=== PATIENT | male | born 1955 | race Caucasian/White ===

== ENCOUNTER 2018-01-19 14:33 | Inpatient (IN) | payer OTHER ==
[~2018-01-19] VITALS: Ht 167.6 cm; Wt 83.0 kg
[~2018-01-19 14:33] MED LIST: ADVIL200 MG PO; AMLODIPINE BESY10 MG PO; APRESOLINE100 MG PO; CLEOCIN300 MG PO; LASIX20 MG/2 ML PO; LISINOPRIL10 MG PO; PANTOPRAZOLE SO40 MG PO; Rocephin IV
[2018-01-19 15:23] LABS: HEMATOCRIT 42.8 % (38.0-50.0); MCH 26.4 PG (29.0-34.0); MCHC 32.7 G/DL (30.0-36.0); MCV 80.8 FL (86-99); PLATELET COUNT 203 K/uL (156-360); RBC DIS.WIDTH-CV 15.9 % (11.8-14.6); RBC DIS.WIDTH-SD 46.4 % (39-53); WHITE BLOOD COUNT 5.7 K/uL (4.1-10.2)
[2018-01-19 15:34] LABS: CHLORIDE 106 mEq/L (99-109); SODIUM 139 mEq/L (136-147)
[2018-01-19 15:35] LABS: GLUCOSE 109 mg/dL (70-99)
[2018-01-19 15:39] LABS: GFR ESTIMATE (CALCULATED) > 59 mL/min/ (58.99-99999)
[2018-01-19 15:40] LABS: UREA NITROGEN (BUN) 22 mg/dL (9-23)
[2018-01-19] MEDS ORDERED: APRESOLINE100 MG PO (17:25)
[2018-01-19] MEDS ORDERED: ERGOCALCIF50000 UNIT PO (17:25)
[2018-01-19] MEDS ORDERED: VITAMIN B122500 MCG PO (17:26)
[2018-01-19] MEDS ORDERED: SIMVASTATIN20 MG PO (17:26)
[2018-01-19 20:36] LABS: SERUM ETHYL ALCOHOL < 10 mg/dL
[2018-01-19 20:45] LABS: TROP-I INTERPRETATION NEGATIVE; TROPONIN-I < 0.01 ng/mL (0.0-0.30)
[2018-01-19 21:45] LABS: HDL CHOLESTEROL 43 MG/DL (Desirable>=40); LDL CHOLESTEROL 98 mg/dL (Desirable<100); NON-HDL CHOLESTEROL 126 mg/dL (Desirable<160); TOTAL CHOLESTEROL 169 mg/dL (Desirable<200); TRIGLYCERIDES 141 MG/DL (Normal: <150)
[2018-01-19 22:23] VITALS: BP 183/113
[2018-01-20 00:27] VITALS: BP 136/78
[2018-01-20 02:00] LABS: TROP-I INTERPRETATION NEGATIVE; TROPONIN-I < 0.01 ng/mL (0.0-0.30)
[2018-01-20 03:22] LABS: HEMATOCRIT 41.5 % (38.0-50.0); HEMOGLOBIN 13.4 G/DL (12.5-16.6); MCV 80.9 FL (86-99)
[2018-01-20 04:17] VITALS: BP 119/82
[2018-01-20 06:32] LABS: HEMATOCRIT 42.1 % (38.0-50.0); HEMOGLOBIN 13.5 G/DL (12.5-16.6); MCH 25.9 PG (29.0-34.0); MCHC 32.1 G/DL (30.0-36.0); MCV 80.7 FL (86-99); PLATELET COUNT 221 K/uL (156-360); RBC DIS.WIDTH-CV 15.9 % (11.8-14.6); RBC DIS.WIDTH-SD 46.7 % (39-53); RED BLOOD COUNT 5.22 M/uL (4.00-5.50); WHITE BLOOD COUNT 5.9 K/uL (4.1-10.2)
[2018-01-20 07:02] LABS: TROP-I INTERPRETATION NEGATIVE; TROPONIN-I < 0.01 ng/mL (0.0-0.30)
[2018-01-20 07:39] VITALS: BP 115/81
[2018-01-20 10:19] LABS: HEMOGLOBIN A1c (GLYCOHEMOGLOB) 5.7 % (Below 5.7)
[2018-01-20 11:46] VITALS: BP 125/87
[2018-01-20 15:28] VITALS: BP 127/97
[2018-01-20 17:22] LABS: HEMATOCRIT 43.3 % (38.0-50.0); HEMOGLOBIN 13.9 G/DL (12.5-16.6); MCV 81.9 FL (86-99)
[2018-01-20 19:29] VITALS: BP 132/65
[2018-01-20 22:09] LABS: HEMATOCRIT 41.7 % (38.0-50.0); HEMOGLOBIN 13.5 G/DL (12.5-16.6); MCV 81.9 FL (86-99)
[2018-01-21 00:11] VITALS: BP 116/68
[2018-01-21 04:12] VITALS: BP 112/77
[2018-01-21 05:37] LABS: HEMATOCRIT 43.3 % (38.0-50.0); HEMOGLOBIN 13.5 G/DL (12.5-16.6); MCH 25.6 PG (29.0-34.0); MCHC 31.2 G/DL (30.0-36.0); MCV 82.2 FL (86-99); PLATELET COUNT 217 K/uL (156-360); RBC DIS.WIDTH-CV 15.9 % (11.8-14.6); RBC DIS.WIDTH-SD 47.4 % (39-53); RED BLOOD COUNT 5.27 M/uL (4.00-5.50); WHITE BLOOD COUNT 5.1 K/uL (4.1-10.2)
[2018-01-21 05:44] LABS: PTT 27.5 SEC (25-37)
[2018-01-21 06:12] LABS: ALBUMIN 3.5 G/DL (3.2-4.8); CHLORIDE 102 MEQ/L (99-109); CREATININE 1.3 MG/DL (0.6-1.3); GFR ESTIMATE (CALCULATED) > 59 mL/min/ (58.99-99999); GLUCOSE 101 mg/dL (70-99); PHOSPHORUS 3.6 mg/dL (2.5-4.9); POTASSIUM 4.3 MEQ/L (3.7-5.4); SODIUM 138 MEQ/L (136-147); UREA NITROGEN (BUN) 20 mg/dL (9-23)
[2018-01-21 07:06] VITALS: BP 109/76
[2018-01-21 13:30] VITALS: BP 120/72
[2018-01-21 14:10] LABS: HEMATOCRIT 45.9 % (38.0-50.0); HEMOGLOBIN 14.6 G/DL (12.5-16.6); MCV 82.1 FL (86-99)
[2018-01-21 19:42] VITALS: BP 124/81
[2018-01-22 00:34] VITALS: BP 120/73
[2018-01-22 03:52] VITALS: BP 116/77
[2018-01-22 06:38] LABS: HEMATOCRIT 43.2 % (38.0-50.0); HEMOGLOBIN 13.9 G/DL (12.5-16.6); MCH 26.2 PG (29.0-34.0); MCHC 32.2 G/DL (30.0-36.0); MCV 81.4 FL (86-99); PLATELET COUNT 215 K/uL (156-360); RBC DIS.WIDTH-CV 15.9 % (11.8-14.6); RBC DIS.WIDTH-SD 47.2 % (39-53); RED BLOOD COUNT 5.31 M/uL (4.00-5.50); WHITE BLOOD COUNT 5.9 K/uL (4.1-10.2)
[2018-01-22] MEDS ORDERED: ANTIVERT12.5 MG PO (07:55)
[2018-01-22] MEDS ORDERED: SUCRALFATE1 GM/10 ML PO (07:56)
[2018-01-22] MEDS ORDERED: PROTONIX40 MG PO (07:56)
[2018-01-22 08:04] VITALS: BP 106/74
[2018-01-22 11:48] VITALS: BP 113/77
[2018-01-22 12:47] LABS: STOOL OCCULT BLD 1ST SPECIMEN NEGATIVE
[2018-01-22 12:49] LABS: STOOL OCCULT BLD 1ST SPECIMEN POSITIVE
== END 2018-01-22 13:15 | disposition home or self-care (01) | DRG 149 ==
LOC: EME 14:33 → EDOF 19:45 → 5SOUTH 19:45 → ENRESERV 19:49 → 5SOUTH 21:20
PROVIDERS: Emergency Medicine Emergency Medical Services; Hospitalist; Internal Medicine; Internal Medicine Gastroenterology; Internal Medicine Nephrology; Physician Assistant Medical
DX: H81.10 Benign paroxysmal vertigo, unspecified ear (principal); R51 Headache; R26.0 Ataxic gait; K22.10 Ulcer of esophagus without bleeding; K25.9 Gastric ulcer, unspecified as acute or chronic, without hemorrhage or perforation; K92.1 Melena; I10 Essential (primary) hypertension; E78.5 Hyperlipidemia, unspecified; K21.9 Gastro-esophageal reflux disease without esophagitis; K44.9 Diaphragmatic hernia without obstruction or gangrene; K40.90 Unilateral inguinal hernia, without obstruction or gangrene, not specified as recurrent; Z91.14 Patient's other noncompliance with medication regimen; Z86.010 Personal history of colon polyps; H81.399 Other peripheral vertigo, unspecified ear
CPT/HCPCS: 70544; 70551; 80048; 80061; 80069; 82272; 82948; 83036; 84484; 85014; 85018; 85027; 85610; 85730; 86850; 86900; 86901; 88305; 88342 TC; 93005; 97530 GO; 97530 GP; 99281; 99285; C9113; G0480; J1644; J7040